=== PATIENT | female | born 1980 | race Two or more races ===

== ENCOUNTER 2018-02-10 16:34 | Emergency (ER) | payer OTHER ==
[~2018-02-10] VITALS: Ht 162.6 cm; Wt 108.0 kg
[2018-02-10 16:47] VITALS: BP 132/96
== END 2018-02-10 17:13 | disposition home or self-care (01) ==
LOC: ER 16:42
DX: Z76.0 Encounter for issue of repeat prescription (principal); F41.9 Anxiety disorder, unspecified; F31.9 Bipolar disorder, unspecified; Z91.013 Allergy to seafood; Z88.6 Allergy status to analgesic agent
CPT/HCPCS: 99281; A4606; Z7610; Z7502